=== PATIENT | male | born 1990 | race Caucasian/White ===

== ENCOUNTER 2018-09-19 13:20 | Emergency (ER) | payer OTHER ==
[2018-09-19 14:23] VITALS: BP 123/64
[2018-09-19] MEDS ORDERED: Albuterol 2.5 MG/3 ML NEB.SOL* (0.083%) INH ONE (15:10)
--- NOTE | 2018-09-19 15:10 | UC ---
UC General HPI - HPI Summary HPI Summary: ABOUT 7 DAYS AGO PT BECAME ILL WITH CHILLS, SWEATS CONGESTION AND FEELING FAINT. HE PRESENTS FOR WORSENING SINUS CONGESTION, DRAINAGE AND COUGH WITH CHEST CONGESTION PLUS OCCASIONAL WHEEZING. ADMITS TO DAUGHERTY. NO HX ASTHMA. WENT TO THE PHARMACY AND TOOK OTC MEDICATION SUGGESTED BY THE PHARMACIST WITH NO RELIEF. PHARMACIST SUGGEST HE GET CHECKED. NO HEADACHE OR MUSCLE ACHES. - History of Current Complaint Chief Complaint: UCGeneralIllness Stated Complaint: COUGH,BEEBE Time Seen by Provider: 09/19/18 15:04 Hx Obtained From: Patient Onset/Duration: Gradual Onset Timing: Constant Pain Intensity: 6 Associated Signs & Symptoms: Negative: Chest Pain, Diarrhea, Vomiting - Allergy/Home Medications Allergies/Adverse Reactions: Allergies Allergy/AdvReac Type Severity Reaction Status Date / Time No Known Allergies Allergy Verified 09/19/18 14:12 Home Medications: Home Medications D-Methorphan/PE/Acetaminophen [Daytime Cold Multi-Symp Gelcap] 2 each PO DAILY MDD discomfort 09/19/18 [History Confirmed 09/19/18] Guaifenesin/Dextromethorphan [Robitussin Cough & Chest 20-400 mg/20Ml] 20 ml PO Q4H PRN 09/19/18 [History Confirmed 09/19/18] Guaifenesin/Pseudoephedrne HCl [Mucinex D ER 600-60 mg Tablet] 1 each PO Q12H PRN 09/19/18 [History Confirmed 09/19/18] PMH/Surg Hx/FS Hx/Imm Hx Previously Healthy: Yes - Surgical History Surgical History: None - Family History Known Family History: Positive: Non-Contributory - Social History Occupation: Employed Full-time Alcohol Use: Occasionally Substance Use Type: Marijuana Smoking Status (MU): Never Smoked Tobacco Review of Systems All Other Systems Reviewed And Are Negative: Yes Constitutional: Positive: Fever, Chills ENT: Positive: Nasal Discharge, Sinus Congestion, Sinus Pain/Tenderness Respiratory: Positive: Shortness Of Breath, Cough Physical Exam Triage Information Reviewed: Yes Appearance: Well-Appearing Vital Signs: Initial Vital Signs Temp 97.8 F 09/19/18 14:16 Pulse 67 09/19/18 14:16 Resp 18 09/19/18 14:16 BP 123/64 09/19/18 14:16 Pulse Ox 99 09/19/18 14:16 Vital Signs Reviewed: Yes Eyes: Positive: Conjunctiva Clear ENT: Positive: Pharynx normal, Nasal congestion, TMs normal, Sinus tenderness. Negative: Nasal drainage Neck: Positive: Supple, Nontender, No Lymphadenopathy Respiratory: Positive: Lungs clear, No respiratory distress, Other: - Congested cough. Cardiovascular: Positive: RRR, No Murmur Abdomen Description: Positive: Nontender, No Organomegaly, Soft Bowel Sounds: Positive: Present Musculoskeletal: Positive: ROM Intact Neurological: Positive: Alert Psychological: Positive: Age Appropriate Behavior Skin Exam: Normal Diagnostics - Radiology No standard instances Radiology Interpretation Completed By: Radiologist - CXR=IMPRESSION: NO EVIDENCE FOR ACTIVE CARDIOPULMONARY DISEASE. Re-Evaluation - Re-Evaluation First Eval Re-Evaluation Time: 15:57 Change: Unchanged - NO CHNAGE WITH NEBULIZER TX. Course/Dx - Diagnoses Provider Diagnosis: Sinusitis, Bronchitis Discharge - Sign-Out/Discharge Documenting (check all that apply): Patient Departure All imaging exams completed and their final reports reviewed: Yes - Discharge Plan Condition: Stable Disposition: HOME Prescriptions: Amoxicillin/Clavulanate TAB* [Augmentin TAB 875*] 875 mg PO BID 10 Days #20 tab Patient Education Materials: Sinusitis (ED), Acute Bronchitis (ED) Forms: *Work Release Referrals: ROBERTA Jarvis [Medical Doctor] - Additional Instructions: FOLLOW UP EMMANUELN IF NOT BETTER IN 5-7 DAYS OR SOONER IF WORSE. - Billing Disposition and Condition Condition: STABLE Disposition: Home
== END 2018-09-19 16:13 | disposition home or self-care (01) ==
LOC: UCCORT 13:20
DX: J32.9 Chronic sinusitis, unspecified (principal); J40 Bronchitis, not specified as acute or chronic
CPT/HCPCS: 71046; 99212; G0463

== ENCOUNTER 2018-12-01 15:17 | Emergency (ER) | payer OTHER ==
[2018-12-01 15:48] VITALS: BP 131/78
--- NOTE | 2018-12-01 16:44 | UC ---
Skin Complaint HPI - HPI Summary HPI Summary: Per cyber security instructor note: "Pt had surgery October 26, gynecomastia. Outbreak occurred 2- 3 days afterward. Surgeon prescribed a topical abx cream and suggested he see his PCP which he does not have one. Outbreak is mid chest, looks like acne. Pt was initially using an acne cream which dried out his skin too much. Also using tea tree oil. Pt has pain when pressure is applied. " -no fevers/chills/streaks -has been trying to pop them, but has improved a lot since he has not been touchuing them -right nipple area had a hematoma post-op and he needed 2 surgeries thereafter to drain - History of Current Complaint Chief Complaint: UCSkin Time Seen by Provider: 12/01/18 16:42 Stated Complaint: SKIN COMPLAINT Pain Intensity: 0 - Allergy/Home Medications Allergies/Adverse Reactions: Allergies Allergy/AdvReac Type Severity Reaction Status Date / Time No Known Allergies Allergy Verified 09/19/18 14:12 PMH/Surg Hx/FS Hx/Imm Hx Previously Healthy: Yes - Surgical History Surgical History: Yes Surgery Procedure, Year, and Place: gynecomastia October 2018 - Family History Known Family History: Positive: Hypertension, Non-Contributory - Social History Alcohol Use: None Substance Use Type: Marijuana Substance Use Comment - Amount & Last Used: last night Smoking Status (MU): Current Every Day Smoker Type: Smokeless Tobacco Review of Systems All Other Systems Reviewed And Are Negative: Yes Constitutional: Positive: Negative. Negative: Fever, Chills Skin: Positive: Rash Eyes: Positive: Negative ENT: Positive: Negative Respiratory: Positive: Negative Cardiovascular: Positive: Negative Gastrointestinal: Positive: Negative Motor: Positive: Negative Neurovascular: Positive: Negative Musculoskeletal: Positive: Negative Neurological: Positive: Negative Psychological: Positive: Negative Is Patient Immunocompromised?: No Physical Exam Triage Information Reviewed: Yes Appearance: Well-Appearing, No Pain Distress, Well-Nourished Vital Signs: Initial Vital Signs Temp 98.5 F 12/01/18 15:38 Pulse 64 12/01/18 15:38 Resp 18 12/01/18 15:38 BP 131/78 12/01/18 15:38 Pulse Ox 100 12/01/18 15:38 ENT Exam: Normal Neck exam: Normal Respiratory Exam: Normal Cardiovascular Exam: Normal Abdominal Exam: Normal Musculoskeletal Exam: Normal Neurological Exam: Normal Psychological Exam: Normal Skin: Positive: Rashes - b/l chest wall w/ small pustular areas surrounded by small areas of erythema. no purulent dc. + tender. cool to touch. no streaks. Course/Dx - Course Course Of Treatment: -Cx taken from extracted purulent material on lesiion on left chest wall. It was not easy to extract the d/c. no fluctuant areas. chest wall is shaved. these may be d/t folliculitis from shaving, possible nosocomial infection s/p procedure -he is aware that this can be contagious and to keep covered - Differential Diagnoses - Skin Complaint Differential Diagnoses: Cellulitis, Contact Dermatitis, Drug Rash - Diagnoses Provider Diagnosis: Boil Discharge - Sign-Out/Discharge Documenting (check all that apply): Patient Departure All imaging exams completed and their final reports reviewed: No Studies - Discharge Plan Condition: Stable Disposition: HOME Prescriptions: Sulfamethox/Trimethoprim DS* [Bactrim DS 800/160 TAB*] 1 tab PO BID #14 tab Patient Education Materials: Furunculosis and Carbunculosis (ED) Referrals: No Primary Care Phys,NOPCP [Primary Care Provider] - [facility] [Provider Group] - 6 Days Additional Instructions: -Make sure to take a probiotic daily while on antibiotics to help prevent a potential complication of antibiotic use called c diff. Some well known brands that can be found OTC are florastor, align and [employer] health. Make sure to complete the entire prescription unless advised otherwise by your health care provider. -Make sure to follow up with either a PCP or a director diabetes. -Call Tuesday for results if you have not heard back from us. - Billing Disposition and Condition Condition: STABLE Disposition: Home
== END 2018-12-01 17:03 | disposition home or self-care (01) ==
LOC: UCCORT 15:17
DX: L02.223 Furuncle of chest wall (principal); F17.290 Nicotine dependence, other tobacco product, uncomplicated
CPT/HCPCS: 87070; 87205; 99212; G0463